=== PATIENT | male | born 1940 | race Caucasian/White ===

== ENCOUNTER 2016-10-17 14:11 | Emergency (ER) | payer BC, MEDICARE ==
[2016-10-17 14:17] VITALS: BP 162/64
[2016-10-17] MEDS ORDERED: Tetan/Diph/Pertus SYR(Tdap)* 0.5 ML SYR(BOOSTRIX) use SYR IM ONE (15:20)
--- NOTE | 2016-10-17 18:16 | ED ---
Skin Complaint - HPI Summary HPI Summary: Rt hand dominant pt here w/ Lt base of thumb laceration around 13:00 today. Was reaching into a drawer and felt a sharp pain - when he pulled his hand out of the drawer, hand was bleeding and he found an exacto knife there. Denies numbness, tingling, weakness and has FROM. Worse with movement. Takes plavix. DM and heart valve among other medical conditions. - History of Current Complaint Chief Complaint: EDLacSutureRecheck Time Seen by Provider: 10/17/16 15:50 Stated Complaint: LT HAND LAC Hx Obtained From: Patient, Family/[employer] - Pain Intensity: 3 - Allergy/Home Medications Allergies/Adverse Reactions: Allergies Allergy/AdvReac Type Severity Reaction Status Date / Time Metformin and Related Allergy Severe Muscle Ache Verified 10/17/16 14:12 Statins Allergy Severe muscle Verified 10/17/16 14:12 aches Titanium Dioxide Allergy Intermediate Rash And Verified 10/17/16 14:12 Itching PMH/Surg Hx/FS Hx/Imm Hx Previously Healthy: Yes Endocrine/Hematology History: Reports: Hx Diabetes Cardiovascular History: Reports: Hx Congestive Heart Failure - R/T BAD VALVE, Hx Hypertension - CONTROLLED WITH MEDS, Hx Myocardial Infarction, Other Cardiovascular Problems/Disorders - needs protection from bacterial endocarditis ; heart valve 01/10 GI History: Reports: Hx Ulcer - , Other GI Disorders - Matute's esophagus History: Reports: Hx Kidney Stones - A FEW YEARS AGO Musculoskeletal History: Reports: Hx Arthritis, Other Musculoskeletal History - GOUT Sensory History: Reports: Hx Cataracts - 12/17/15 FIRST EYE SURGERY, Hx Contacts or Glasses Denies: Hx Hearing Aid Opthamlomology History: Reports: Hx Cataracts - 12/17/15 FIRST EYE SURGERY, Hx Contacts or Glasses - Surgical History Surgery Procedure, Year, and Place: heart valve 01/10. cardiac cath Hx Anesthesia Reactions: No Infectious Disease History: No Infectious Disease History: Denies: Traveled Outside the [place] in Last 30 Days - Family History Known Family History: Positive: None Family History: no malignant hyperthermia. no anesthesia reaction. - Social History Lives: With Family Alcohol Use: Occasionally Hx Substance Use: No Substance Use Type: Reports: None Hx Tobacco Use: Yes Smoking Status (MU): Former Smoker Type: Cigarettes Review of Systems Musculoskeletal: Other - see HPI Skin: Other - see HPI Neurological: Negative Psychological: Normal All Other Systems Reviewed And Are Negative: Yes Physical Exam Triage Information Reviewed: Yes Vital Signs On Initial Exam: Initial Vitals Temp Pulse Resp BP Pulse Ox 98.2 F 75 18 162/64 97 10/17/16 14:13 10/17/16 14:13 10/17/16 14:13 10/17/16 14:13 10/17/16 14:13 Vital Signs Reviewed: Yes Appearance: Positive: Well-Appearing, No Pain Distress, Well-Nourished Skin: Positive: Warm - linear laceration around base of Lt thumb Eyes: Positive: Normal, EOMI ENT: Positive: Hearing grossly normal Respiratory/Lung Sounds: Positive: Breath Sounds Present Cardiovascular: Positive: Normal, Pulses are Symmetrical in both Upper and Lower Extremities Musculoskeletal: Positive: Normal, Strength/ROM Intact Neurological: Positive: Normal, Sensory/Motor Intact Psychiatric: Positive: Normal Procedures - Laceration/Wound Repair 1 Location: upper extremity - Lt base of thumb, palmar aspect within proximal crease Description: Linear Anesthesia: Local, Lido Length, Depth and Shape: 1.75cm x 4mm Irrigated w/ Saline (ccs): 500 Laceration/Wound Explored: clean Closure: Single Layer Suture Type: Nylon - 5-0 Number of Sutures: 7 Layer Closure?: No Sterile Dressing Applied?: Yes - triple antibiotic + sterile gauze + BRIAN wrap ( mild pressure dressing) Diagnostics - Vital Signs Vital Signs Temp Pulse Resp BP Pulse Ox 10/17/16 15:09 98.2 F 75 18 162/64 99 10/17/16 14:13 98.2 F 75 18 162/64 97 - Laboratory Lab Statement: Any lab studies that have been ordered have been reviewed, and results considered in the medical decision making process. Re-Evaluation - Re-Evaluation First Eval Change: Improved Course/Dx - Diagnoses Provider Diagnoses: Laceration of left thumb Discharge - Discharge Plan Condition: Stable Disposition: HOME Prescriptions: Cephalexin CAP* [Keflex CAP*] 500 mg PO QID #40 cap Patient Education Materials: Laceration (ED), Care For Your Stitches (ED) Referrals: Eric Pool MD [Medical Doctor] - Additional Instructions: Rest, ice, elevate and compress with BRIAN wrap dressing Keep dressing clean, dry and intact for 48 hours. After this time, you may remove dressing - gently wash with soap and water, rinse well and reapply sterile gauze dressing with BRIAN wrap. You may wash daily. You may take tylenol for pain Complete antibiotics as directed. Take probiotics in between doses to prevent diarrhea. Follow-up with hand specialist this week - call Wednesday to schedule an appointment. Phone number included here. If you develop fever, chills, swelling, purulent drainage, streaking, seek medical attention sooner.
[2016-10-17] MEDS ORDERED: Cephalexin CAP* 500 MG PO ONE ×2 (18:24)
== END 2016-10-17 18:36 | disposition home or self-care (01) ==
LOC: ED 14:11
DX: S61.012A Laceration without foreign body of left thumb without damage to nail, initial encounter (principal); W26.0XXA Contact with knife, initial encounter; Y93.9 Activity, unspecified; Y92.9 Unspecified place or not applicable; Z87.891 Personal history of nicotine dependence
CPT/HCPCS: 90471; 90715; 99282; A9270-GY

== ENCOUNTER 2016-10-22 07:28 | Day surgery (SDC) | payer BC, MEDICARE ==
[~2016-10-22 07:28] MED LIST: Buffered Lidocaine 0.9% SYRIN* 5 ML/SYR SYRINGE INTRADERM ONE
[2016-10-22] MEDS ORDERED: Buffered Lidocaine 0.9% SYRIN* 5 ML/SYR SYRINGE ONE (07:43)
[2016-10-22] MEDS ORDERED: ceFAZolin 2 GM PREMIX(*) 2 GM/50 ML BAG IVPB ONE (07:43)
[2016-10-22] MEDS ORDERED: Bupivacaine 0.25% SDV* 30 ML ONE (10:03)
[2016-10-22] MEDS ORDERED: Lidocaine 0.5%* 50 ML SDV ONE (10:10)
[2016-10-22] MEDS ORDERED: Propofol* 10 MG/ML 20 ML BTL IV PUSH ONE (10:10)
[2016-10-22] MEDS ORDERED: Midazolam* 1 MG/ML 2 ML VIAL (2 MG) ONE (10:20)
[2016-10-22] MEDS ORDERED: fentaNYL* 50 MCG/ML 2 ML VIAL (100 MCG VIAL) ONE (10:38)
[2016-10-22 11:50] VITALS: BP 133/62
--- NOTE | 2016-10-23 03:28 | OP ---
DATE OF OPERATION: 10/22/16 [facility] DATE OF : 36 SURGEON: Eric Pool MD ASSISTANTS: ÓSCAR Espinoza, and ÓSCAR James Student. An assistant site manager was needed for the entirety of the procedure to aid with retraction of the skin flaps and positioning of the hand and finger. ANESTHESIOLOGIST: Dr. Kerr. ANESTHESIA: Foreman block with MAC. PRE-OP DIAGNOSIS: Left thumb ulnar digital nerve laceration. POST-OP DIAGNOSIS: Left thumb ulnar digital nerve high-grade partial laceration. OPERATIVE PROCEDURES: 1. Exploration of left thumb penetrating wound. 2. Debridement repair of left thumb ulnar digital nerve high-grade partial laceration with nerve wrap. INDICATIONS: Javi is a 76-year-old male who on 10/17/16 cut the ulnar aspect of the left thumb near the MP joint flexion crease with a knife. Ever since, he has had pain in the area. He has been able to flex and extend the thumb tip but the sensation distal to the laceration was quite abnormal. The radial side of the fingertip had absolutely normal sensation. I talked to him about exploring the wound and repairing the nerve as needed. He wanted to proceed with that. We did talk about risks including the risk of the nerve not recovering function and being left with persistent abnormal sensation even with surgery, especially given his age of 76. Due to this being the ulnar digital nerve of the thumb we felt it worthwhile to proceed. ESTIMATED BLOOD LOSS: 2 mL. COMPLICATIONS: None. FINDINGS: High-grade partial laceration of the ulnar digital nerve right at the level of the MP joint. DESCRIPTION OF PROCEDURE: Javi was seen in the preoperative holding area. The correct site, side, and procedure were identified. We came back to the operating room where a Gasper block with a forearm tourniquet was placed. The arm was then prepped and draped in the usual fashion and a formal time-out was performed. I began by extending the oblique laceration distally and proximally in Kei type fashion. Dissection was carried down to the neurovascular bundle. This was identified. A high-grade partial laceration was immediately apparent in the nerve. The artery was intact. The flexor tendon sheath was explored and the flexor tendon was intact. I did not make an attempt to explore the radial digital nerve as the sensation was absolutely normal in the radial aspect of the thumb on his preoperative exam. Once I had identified the laceration, the perineural tissue was freed up along the course of the nerve for a couple of centimeters in the involved area. I then took my micro-scissors and debrided the edges of the partial laceration under 3.5 x loop magnification leaving clean and healthy nerve edges. The intact portion of the nerve which was the radial portion of the nerve, probably 25% of the nerve was not disrupted. Once I had done the debridement, I irrigated out the wound, everything looked very nice and clean and ready for repair. I decided that since there was about 1 mm of gap that had developed, I thought this was good to leave it just like this. I went ahead and selected a 4 x 15 mm Avance collagen conduit. I used the scissors to incise this longitudinally. I then wrapped it around the nerve and secured the nerve wrap proximally and distally with 9-0 simple sutures holding the two edges of the nerve wrap in place. The wrap was tethered proximally and distally due to the perineural tissue. I felt like it was in a good position and that the defect was covered very nicely and set up for the best possible chance for recovery of the nerve. I, therefore, irrigated out the wound and let the skin flaps back. The skin was closed with 5-0 nylon suture. The operative area was infiltrated with 0.25% plain Marcaine. The wound was dressed with Xeroform, 4x4, sterile Webril, and a thumb spica splint was placed to the IP joint. The tourniquet was deflated, the thumb pinked up immediately. He was then woken up and taken to the recovery room in stable condition. [id number]/[facility] #: [id number] ANY
== END 2016-10-22 11:56 | disposition home or self-care (01) ==
LOC: OREAST 07:28
PROVIDERS: ATTEND Orthopaedic Surgery Hand Surgery
DX: S64.32XA Injury of digital nerve of left thumb, initial encounter (principal); S66.022A Laceration of long flexor muscle, fascia and tendon of left thumb at wrist and hand level, initial encounter; W26.0XXA Contact with knife, initial encounter; Y92.009 Unspecified place in unspecified non-institutional (private) residence as the place of occurrence of the external cause; E11.9 Type 2 diabetes mellitus without complications; Z79.4 Long term (current) use of insulin; I10 Essential (primary) hypertension; I48.91 Unspecified atrial fibrillation; Z87.891 Personal history of nicotine dependence; Z79.82 Long term (current) use of aspirin; Z79.01 Long term (current) use of anticoagulants
CPT/HCPCS: C1776; J0690; J2250; J2704; J3010

== ENCOUNTER 2017-02-19 11:39 | Day surgery (SDC) | payer BC, MEDICARE ==
[~2017-02-19 11:39] MED LIST changes: +Famotidine IV* 10 MG/ML 2 ML (20 mg) IV ONE; +Metoclopramide TAB* 10 MG PO ONE
[2017-02-19] MEDS ORDERED: Metoclopramide TAB* 10 MG ONE (11:59)
[2017-02-19] MEDS ORDERED: Famotidine IV* 10 MG/ML 2 ML (20 mg) ONE (11:59)
[2017-02-19] MEDS ORDERED: Buffered Lidocaine 0.9% SYRIN* 5 ML/SYR SYRINGE ONE (11:59)
[2017-02-19] MEDS ORDERED: ceFAZolin 2 GM PREMIX (*) 2 GM/50 ML BAG IVPB ONE (12:00)
[2017-02-19] MEDS ORDERED: Bupivacaine 0.25% SDV* 30 ML ONE (12:18)
[2017-02-19] MEDS ORDERED: Lidocaine 1% INJ* 10 MG/ML 30 ML SDV ONE (12:18)
[2017-02-19] MEDS ORDERED: Lidocaine 2% PF * 5 ML VIAL ONE (12:40)
[2017-02-19] MEDS ORDERED: Dexamethasone IV* 4 MG/ML 1 ML (4 MG) ONE (12:40)
[2017-02-19] MEDS ORDERED: fentaNYL* 50 MCG/ML 2 ML VIAL (100 MCG VIAL) ONE (12:40)
[2017-02-19] MEDS ORDERED: Mivacurium Chloride* 20 MG/10 ML VIAL IV ONE (12:40)
[2017-02-19] MEDS ORDERED: KETAMINE HCL* 50 MG/ML 10 ML VIAL ONE (12:40)
[2017-02-19] MEDS ORDERED: Propofol* 10 MG/ML 20 ML BTL IV PUSH ONE (12:40)
[2017-02-19] MEDS ORDERED: Ondansetron INJ* 2 MG/ML VIAL ONE (12:40)
[2017-02-19] MEDS ORDERED: Midazolam* 1 MG/ML 5 ML VIAL (5 MG) ONE (12:40)
[2017-02-19] MEDS ORDERED: fentaNYL* 50 MCG/ML 2 ML VIAL (100 MCG VIAL) IV PRN (14:32)
[2017-02-19] MEDS ORDERED: Ondansetron INJ* 2 MG/ML VIAL IV PRN (14:32)
--- NOTE | 2017-02-19 14:54 | PN ---
Progress Note - Progress Note Date of Service: 02/19/17 Note: Brief Operative Note: Pre-op: Pancreatic mass Post-op: Same Procedure: Diagnostic laparoscopy with FNA of pancreatic mass. Powerport insertion. Surgeon: Dr. Pryor Elementary Tutor: ÓSCAR Bonilla Anaesthesia: GETA Fluids: NS 500 cc EBL: <50cc Specimen: FNA pancreatic mass Catheter: None Drains: None Findings: See dictated op note
--- NOTE | 2017-02-19 15:52 | RAD ---
HISTORY: Status post PowerPort insertion COMPARISONS: February 27, 2016 VIEWS: 1: frontal portable view of the chest at 3:25 PM FINDINGS: LINES AND TUBES: A right-sided chest port is noted from a subclavian approach with the tip overlying the superior vena cava. CARDIOMEDIASTINAL SILHOUETTE: The cardiomediastinal silhouette is normal for portable technique. PLEURA: The costophrenic angles are sharp. No pleural abnormalities are noted. There is no appreciable pneumothorax. LUNG PARENCHYMA: There is a persistent nodule of the left upper lung. ABDOMEN: The upper abdomen is clear. There is no subphrenic gas. BONES AND SOFT TISSUES: The patient is status post median sternotomy. IMPRESSION: LINES AND TUBES ABOVE. STABLE LEFT UPPER LUNG NODULE..
--- NOTE | 2017-02-19 15:56 | RAD ---
INDICATION: Pain reported insertion COMPARISONS: None relevant TECHNIQUE: Fluoroscopy was provided for a vascular access procedure. Total fluoroscopy time is: 15.6 seconds FINDINGS: Spot images demonstrate a right-sided chest port with the tip overlying the cavoatrial junction. An endotracheal tube is noted. IMPRESSION: FLUOROSCOPY WAS PROVIDED FOR A VASCULAR ACCESS PROCEDURE CPT II Codes: 6045F
[2017-02-19 17:47] VITALS: BP 137/71
--- NOTE | 2017-02-20 08:27 | OP ---
CC: Dr. Jeffrey Pryor; Dr. Last Thakkar; Dr. Salvador Valencia; and Dr. Salvador Pollock OPERATIVE REPORT: DATE OF OPERATION: 02/19/17. DATE OF : 36. SURGEON: Jeffrey Pryor MD. DEAN OF WOMEN: PA. Tejal. ANESTHESIOLOGIST: Dr. Robertson. ANESTHESIA: General anesthetic, local infiltration. PRE-OP DIAGNOSIS: Pancreatic mass. POST-OP DIAGNOSIS: Pancreatic mass. OPERATIVE PROCEDURE: Laparoscopic biopsy, pancreatic mass, and placement of right subclavian 8-Frenc h PowerPort. DESCRIPTION OF PROCEDURE: The patient was supine on the operative table. After adequate general ane sthetic, compression stockings, Mauricio Hugger warmer, and intravenous antibiotics, the abdomen was prep ped with antiseptic, draped in a sterile fashion. Local infiltrative anesthesia was administered. A small umbilical incision was created. Veress needle was inserted with the abdominal wall tented up upward. Drop test was utilized. Then insufflation was carried out. A 5 mm cannula was placed witho ut difficulty. Insufflation was carried out additionally with carbon dioxide. A 5 mm scope was inse rted. There was no underlying injury. Ultimately 5 separate cannulas were placed. One in the left lateral mid abdomen, one in the left lateral subcostal space and one in the subxiphoid space. The om entum was tented upward. There was adherence of the omentum to the left lateral side wall which was divided with a LigaSure to create mobility as the omentum was tented upward and the transverse mesoco freddy tented up. The proximal jejunum was brought down and the ligament of Treitz was identified. There was tumor puckering at the region of the ligament of Treitz and it appeared that this was partially obstructing the small intestine at the duodenojejunal junction. Fine needle aspiration with a 20 cm 22 gauge needle was utilized and specimens were passed off to the pathologist until adequate tissue w as obtained. There was bleeding from one of the needle passes, but this stopped within about a minute or two. The operative field was irrigated with saline solution. Hemostasis was again ensured. The area of the omental dissection and the area of the needle biopsies were carefully examined. Hemosta sis was good. The cannulae were removed and skin closed with 5-0 Vicryl followed by Steri-strips. A ttention was then turned to the right chest and neck region which were then prepped with antiseptic a nd draped in a sterile fashion. Local infiltration was administered and a 3 cm incision was created in the right subclavian region. An inferior pocket was created. Subclavian venipuncture carried out , guidewire passed into the introducer, measured and cut at 23 cm as the catheter was attached to the port and sutured to the pocket with 2-0 Prolene. The pocket was closed with 3-0 and 5-0 Vicryl foll owed by Steri-strips. The port had good blood return and was flushed with saline solution and hepari nized solution. He tolerated the procedure well and was brought to the Recovery in good condition. There were no complications. No drains. Pathologic specimen was needle aspirate of the pancreatic m ass. Sponge and instrument counts correct. Estimated blood loss all total was less than 30 mL. [id number]/[facility] #: [id number]
== END 2017-02-19 17:45 | disposition home or self-care (01) ==
LOC: OR 11:39
PROVIDERS: ATTEND Surgery
DX: C25.2 Malignant neoplasm of tail of pancreas (principal); I10 Essential (primary) hypertension; Z79.01 Long term (current) use of anticoagulants; D69.49 Other primary thrombocytopenia; Z95.5 Presence of coronary angioplasty implant and graft; E11.9 Type 2 diabetes mellitus without complications; Z79.84 Long term (current) use of oral hypoglycemic drugs; Z87.891 Personal history of nicotine dependence; Z95.2 Presence of prosthetic heart valve; I25.10 Atherosclerotic heart disease of native coronary artery without angina pectoris; E78.5 Hyperlipidemia, unspecified; M10.9 Gout, unspecified; G62.9 Polyneuropathy, unspecified
CPT/HCPCS: 71010; 76000; 88172; 88173; 88177; 88305; A9270-GY; C1788; J0690; J1100; J1642; J2250; J2405; J2704; J3010